=== PATIENT | male | born 1985 | race Caucasian/White ===

== ENCOUNTER 2016-07-31 06:49 | Emergency (ER) ==
[2016-07-31 07:11] VITALS: BP 123/066
[2016-07-31] MEDS ORDERED: PEN VK PO ONE (07:30)
--- NOTE | 2016-07-31 07:31 | PROVIDER DOCUMENTATION ---
[facility] General - General Chief Complaint: Toothache Stated Complaint: TOOTHACHE Time Seen by Provider: 07/31/16 07:21 Source: patient Allergies/Adverse Reactions: Patient Allergies Allergy/AdvReac Type Severity Reaction Status Date / Time No Known Allergies Allergy Verified 07/31/16 07:11 Home Medications: Home Medication List Medication Instructions Recorded Confirmed Last Taken Type Penicillin V Potassium 500 mg PO 4XDAY #40 tablet 07/31/16 Unknown Rx - History of Present Illness-EENT General Nature of Presenting Problem: Started pain yesterday and has no dentist. Will appreciate some antibiotics and will take [facility] Quality of Pain: reports: aching Severity: reports: mild Onset/Duration: reports: unsure, 24 hours ago Timing: reports: still present Review of Systems - Adult - REVIEW OF SYSTEMS - ADULT Constitutional: denies: chills, fever Eyes: denies: discharge, blurred vision Ears, Nose, Mouth & Throat: reports: mouth/dental pain Cardiovascular: denies: chest pain, irregular heart rate Respiratory: denies: chronic cough, shortness of breath Gastrointestinal: denies: abdominal pain, hematemesis, frequent heartburn Genitourinary: denies: discharge, hematuria Musculoskeletal: denies: bone pain, joint swelling, muscle weakness Psychiatric: reports: no symptoms reported Endocrine: reports: no symptoms reported Hematologic/Lymphatic: reports: no symptoms reported Allergic/Immunologic: reports: no symptoms reported Past History - Adult - PAST MEDICAL HISTORY-ADULT Review of Records: reports: Nursing Assessment Review, Medications Reviewed Physical Exam- EENT - Physical Exam EE Initial Vital Signs Reviewed: Yes General Appearance: appears well, alert, mild distress Eye Exam: bilateral eye: normal inspection, PERRL, EOMI Ear Exam: bilateral ear: auricle normal, canal normal Nasal Exam: normal inspection Throat Exam: normal mouth inspection, pharynx normal, dental tenderness Neck: non-tender, full range of motion, supple Respiratory: chest non-tender, lungs clear, normal breath sounds, no pleuratic chest pain, no respiratory distress, no accessory muscle use Cardiovascular: normal peripheral pulses, regular rate, rhythm, no edema, no gallop, no JVD, no murmur Abdominal Exam: non tender, soft, no organomegaly Lymphatic: no adenopathy Back Exam: normal inspection Extremity: normal range of motion, non-tender, normal gait Integumentary: normal color, normal turgor, warm/dry 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
== END 2016-07-31 08:02 | disposition home or self-care (01) ==
LOC: P.ED 06:49
DX: K04.7 Periapical abscess without sinus (principal); K08.89 Other specified disorders of teeth and supporting structures
CPT/HCPCS: 99282